=== PATIENT | female | born 1960 | race Caucasian/White ===

== ENCOUNTER 2018-06-15 15:53 | Emergency (ER) | payer SELFPAY ==
[2018-06-15 18:49] LABS: URINE BLOOD (Dip) POC Trace-intact (NEGATIVE); URINE GLUCOSE (Dip) POC Negative (NEGATIVE); URINE KETONES (Dip) POC Negative (NEGATIVE); URINE LEUKOCYTE EST (Dip) POC Negative (NEGATIVE); URINE NITRITE (Dip) POC Negative (NEGATIVE); URINE TOTAL PROTEIN POC Negative (NEGATIVE)
[2018-06-15 18:49] LABS: URINE PH (Dip) POC 6.5 (5.0-8.5)
[2018-06-15] MEDS: KETOROLAC 30 MG INJ IM (18:56)
[2018-06-15] MEDS: predniSONE 20 MG TAB PO (18:56)
== END 2018-06-15 21:20 | disposition home or self-care (01) ==
LOC: FTE 15:53
DX: M54.41 Lumbago with sciatica, right side (principal)
CPT/HCPCS: 72100; 81003; 96372; 99284-25